=== PATIENT | male | born 2000 | race Caucasian/White ===

== ENCOUNTER 2025-07-26 09:39 | Emergency (ER) | payer OTHER ==
[2025-07-26] MEDS ORDERED: Ketorolac Tromethamine 30 MG (1 mL) VIAL ONE (10:25)
[2025-07-26] MEDS ORDERED: Ondansetron PF 4 MG/2 ML Vial ONE (10:25)
[2025-07-26 10:33] LABS: #Basophils 0.04 10x3/uL (0.0-0.2); #Eosinophils 0.04 10x3/uL (0.0-0.5); #Monocytes 0.83 10x3/uL (0.0-1.1); #Neutrophils 13.59 10x3/uL (1.5-8.4); %Basophils 0.3 % (0.0-2.0); %Eosinophils 0.3 % (0.0-6.0); %Lymphocytes 5.8 % (18.0-47.0); %Monocytes 5.4 % (0.0-10.0); %Neutrophils 87.7 % (40.0-75.0); Hematocrit 45.5 % (38.8-50.0); Hemoglobin 15.6 g/dL (13.5-17.5); Mean Corpuscular Hemoglobin 29.6 pg (27.0-33.0); Mean Corpuscular Volume 86.3 fL (81.2-95.1); Platelet Count 300 10x3/uL (150-450); Red Blood Cell (RBC) Count 5.27 10x6/uL (4.32-5.72); White Blood Cell (WBC) Count 15.47 10x3/uL (3.5-10.5)
[2025-07-26 10:48] LABS: ALT (SGPT) 40 U/L (Less than 45); AST (SGOT) 28 U/L (11-34); Albumin 4.5 g/dL (3.1-4.5); Alkaline Phosphatase 61 U/L (40-110); Anion Gap 15 mmol/L (10-20); BUN (Urea Nitrogen) 19 mg/dL (8.9-20.6); Bilirubin, Total 1.0 mg/dL (0.3-1.2); Calc. Creatinine Clearance 0 mL/min (70-130); Calcium 9.6 mg/dL (7.8-10.44); Carbon Dioxide 26 mmol/L (22-29); Chloride 100 mmol/L (98-107); Globulin 3.7 g/dL (2.4-3.5); Glucose 112 mg/dL (70-105); Lipase 20 U/L (8-78); Potassium 4.3 mmol/L (3.5-5.1); Sodium 137 mmol/L (136-145)
== END 2025-07-26 11:41 | disposition home or self-care (01) ==
LOC: CSHERS 09:39
DX: A05.9 Bacterial foodborne intoxication, unspecified (principal); A08.4 Viral intestinal infection, unspecified
CPT/HCPCS: 80053; 83690; 85025; 96374; 96375; J1885; J2405